=== PATIENT | female | born 1980 | race Caucasian/White ===

== ENCOUNTER 2016-10-31 19:26 | Emergency (ER) | payer BC, MEDICAID ==
[~2016-10-31] VITALS: Ht 170.2 cm; Wt 86.2 kg
[~2016-10-31 19:26] MED LIST: ACET1TAB43 PO; IBP600T1 PO; ONDAN4ODT PO; OXYC-12 PO; PREN1TAB39 PO; SULF1TAB38 PO
[2016-10-31] MEDS ORDERED: NPD5OP OS (20:03)
--- NOTE | 2016-10-31 20:03 | ED EENT ---
History of Present Illness General Chief Complaint: Eye Problems Stated Complaint: L EYE REDNESS/DISCOMFORT Nursing Triage Note: PT TO ED 6 W/ C/O LT EYE PAIN ONSET 1200 TODAY, DENIES INJURY History of Present Illness Time seen by provider: 19:50 Initial Comments Evaluation for left eye swelling, redness and mucoid discharge. Patient denies any injury to her left eye states that the discharge began today. She's been using warm moist compresses on it. She does not wear contacts and uses no eye makeup regularly. No household contacts have similar symptoms. Timing/Duration: abrupt Severity: mild Location: eye (L) Prearrival Treatment: no prearrival treatment Associated Symptoms: denies symptoms, No facial pain/swelling, other (no visual changes.) Allergies and Home Medications Allergies Uncoded Allergies: PCN (Allergy, Mild, 11/18/08) Home Medications Ibuprofen 600 Mg Tab, 600 MG PO Q8H, (Reported) As needed for cramps Carrington/Polymyx B Sulf/Dexameth 5 Ml Drops.susp, 2 DRP OS Q4H for 7 Days, #1 Ref 0 2 drops to left eye every 4 hours for 7 hours Prescribed by: BEBA HAILE on 10/31/162002 Oxycodone Hcl/Acetaminophen 1 Each Tablet, 1 EACH PO Q4H PRN, (Reported) As needed for pain Vits W-Ca,Fe,Fa(<1MG) 1 Each Tablet, 1 EACH PO DAILY, (Reported) Daily for one month or as long as Review of Systems Constitutional: no symptoms reported, see HPI Eyes: See HPI, Denies Blurred Vision, Drainage, Denies Decreased Acuity, Denies Foreign Body Sensation, Inflammation, Denies Pain, Denies Photophobia, Denies Previous Injury Nose: no symptoms reported, see HPI All Other Systems Reviewed Negative Unless Noted: Yes Past Vcziojs-Wbtynz-Noounx Hx Patient Social History Alcohol Use: Denies Use Recreational Drug Use: No Smoking Status: Never a Smoker Recent Foreign Travel: No Contact w/Someone Who Travel: No Recent Infectious Disease Expo: No Recent Hopitalizations: Yes (CHILDBIRTH) Respiratory Hx Respiratory Disorders: No Cardiovascular Hx Cardiac Disorders: No Neurological Hx Neurological Disorders: No Reproductive System Hx Reproductive Disorders: No Genitourinary Hx Genitourinary Disorders: No Gastrointestinal Hx Gastrointestinal Disorders: No Musculoskeletal Hx Musculoskeletal Disorders: No Endocrine Hx Endocrine Disorders: No HEENT HX ENT Disorders: No Psychosocial Hx Psychiatric Problems: No Blood Transfusions Hx Blood Disorders: No Reviewed Nursing Assessment Reviewed/Agree w Nursing PMH: Yes Visual Acuity : Eye Location: Left Vision Acuity Degree: 20/20 Physical Exam Vital Signs Vital Sign - Last 12Hours 10/31/16 19:29 Temp 98.3 Pulse 80 Resp 20 B/P (MAP) 130/87 Pulse Ox 99 O2 Delivery Room Air General Appearance: WD/WN, no apparent distress Eyes: left eye conjunctival inflammation, bilateral eye EOMI, bilateral eye PERRL, bilateral eye normal inspection Ears: bilateral ear TM normal, bilateral ear auricle normal, bilateral ear canal normal Nose: normal inspection, No discharge, No sinus tenderness Mouth/Throat: normal mouth inspection, pharynx normal Neck: non-tender, full range of motion, supple, No lymphadenopathy (R), No lymphadenopathy (L) Cardiovascular: normal peripheral pulses, regular rate, rhythm, no murmur Respiratory: chest non-tender, lungs clear Neurologic/Psychiatric: no motor/sensory deficits, alert, normal mood/affect, oriented x 3 Skin: normal color, warm/dry Progress/Results/Core Measures Results/Orders Vital Signs/I&O Vital Sign - Last 12Hours 10/31/16 19:29 Temp 98.3 Pulse 80 Resp 20 B/P (MAP) 130/87 Pulse Ox 99 O2 Delivery Room Air Blood Pressure Mean: 101 Departure Impression Impression: Primary Impression: Conjunctivitis Qualified Codes: H10.32 - Unspecified acute conjunctivitis, left eye Disposition: 01 HOME, SELF-CARE Condition: Improved Departure-Patient Inst. Decision time for Depature: 20:00 Referrals: BLAINE FUENTES MD (PCP/Family) Primary Care Physician Patient Instructions: Conjunctivitis (Pinkeye) (DC) Add. Discharge Instructions: Warm moist compresses to the left eye. Use antibiotics as prescribed. Change pillowcase daily. Wash hands frequently. Return to emergency department if changes in vision, increased pain or swelling in the eyes, or new complaints. All discharge instructions reviewed with patient and/or family. Voiced understanding. Scripts Carrington/Polymyx B Sulf/Dexameth (Lrpppk-Uzzze-Lyrxtkqo Eye Drop) 5 Ml Drops.susp 2 DRP OS Q4H for 7 Days, #1 DROPS 0 Refills 2 drops to left eye every 4 hours for 7 hours Prov: BEBA HAILE 10/31/16 BEBA HAILE Oct 31, 2016 20:03
[2016-10-31 20:15] VITALS: BP 0/0
--- OUTSIDE RECORDS SUMMARY | 2016-10-31 21:38 | XMS REPORT | Continuity of Care Document ---
Author Author [facility] Address Unknown Phone Unavailable Allergies Active Description Code Type Severity Reaction Onset Reported/Identified Relationship to Patient Clinical Status Yes Penicillins Drug Allergy 11/09/2009 Yes Penicillins Drug Allergy N/A N/A 11/09/2009 Medications Problems Date Dx Coded Attending Type Code Diagnosis Diagnosed By 12/25/2007 034.0 STREP THROAT 12/25/2007 AAYUSH CELESTIN DO 034.0 STREP THROAT 12/25/2007 ALTHEA MCKEON ALBARO A 034.0 STREP THROAT 12/25/2007 EDWIGE BRYANT APRN E 034.0 STREP THROAT 12/25/2007 AAYUSH CELESTIN DO 034.0 STREP THROAT 01/17/2008 296.90 UNSPECIFIED EPISODIC MOOD DISORDER 01/17/2008 300.00 AN ANXIETY UNSPEC 01/17/2008 LALA CELESTIN DOA K 296.90 UNSPECIFIED EPISODIC MOOD DISORDER 01/17/2008 LALA CELESTIN DOA K 300.00 AN ANXIETY UNSPEC 01/17/2008 [place] OH APRNIDI A 296.90 UNSPECIFIED EPISODIC MOOD DISORDER 01/17/2008 ALTHEA MCKEON ALBARO A 300.00 AN ANXIETY UNSPEC 01/17/2008 EDWIGE BRYANT APRN E 296.90 UNSPECIFIED EPISODIC MOOD DISORDER 01/17/2008 EDWIGE BRYANT APRN E 300.00 AN ANXIETY UNSPEC 01/17/2008 LALA CELESTIN DOA K 296.90 UNSPECIFIED EPISODIC MOOD DISORDER 01/17/2008 LALA CELESTIN DOA K 300.00 AN ANXIETY UNSPEC 11/09/2009 682.9 CELLULITIS AND ABSCESS OF UNSPECIFIED SITES 11/09/2009 AAYUSH CELESTIN DO 682.9 CELLULITIS AND ABSCESS OF UNSPECIFIED SITES 11/09/2009 ALTHEA MCKEON ALBARO A 682.9 CELLULITIS AND ABSCESS OF UNSPECIFIED SITES 11/09/2009 EDWIGE BRYANT APRN E 682.9 CELLULITIS AND ABSCESS OF UNSPECIFIED SITES 11/09/2009 AAYUSH CELESTIN DO 682.9 CELLULITIS AND ABSCESS OF UNSPECIFIED SITES 03/22/2010 465.9 ACUTE UPPER RESPIRATORY INFECTIONS OF UNSPECIFIED SITE 03/22/2010 AAYUSH CELESTIN DO 465.9 ACUTE UPPER RESPIRATORY INFECTIONS OF UNSPECIFIED SITE 03/22/2010 ALBARO OH APRN A 465.9 ACUTE UPPER RESPIRATORY INFECTIONS OF UNSPECIFIED SITE 03/22/2010 EDWIGE BRYANT APRN 465.9 ACUTE UPPER RESPIRATORY INFECTIONS OF UNSPECIFIED SITE 03/22/2010 AAYUSH CELESTIN DO 465.9 ACUTE UPPER RESPIRATORY INFECTIONS OF UNSPECIFIED SITE 04/29/2010 079.99 VIRAL SYNDROME 04/29/2010 AAYUSH CELESTIN DO 079.99 VIRAL SYNDROME 04/29/2010 ALBARO OH APRN A 079.99 VIRAL SYNDROME 04/29/2010 EDWIGE BRYANT APRN 079.99 VIRAL SYNDROME 04/29/2010 AAYUSH CELESTIN DO 079.99 VIRAL SYNDROME 05/16/2010 723.1 CERVICALGIA 05/16/2010 AAYUSH CELESTIN DO 723.1 CERVICALGIA 05/16/2010 ALBARO OH APRN A 723.1 CERVICALGIA 05/16/2010 EDWIGE BRYANT APRN 723.1 CERVICALGIA 05/16/2010 AAYUSH CELESTIN DO 723.1 CERVICALGIA 05/19/2010 V72.31 ROUTINE GYNECOLOGICAL EXAMINATION 05/19/2010 AAYUSH CELESTIN DO V72.31 ROUTINE GYNECOLOGICAL EXAMINATION 05/19/2010 ALBARO OH APRN A V72.31 ROUTINE GYNECOLOGICAL EXAMINATION 05/19/2010 EDWIGE BRYANT APRN V72.31 ROUTINE GYNECOLOGICAL EXAMINATION 05/19/2010 AAYUSH CELESTIN DO V72.31 ROUTINE GYNECOLOGICAL EXAMINATION 06/15/2010 795.00 ABNORMAL GLANDULAR PAPANICOLAOU SMEAR OF CERVIX 06/15/2010 AAYUSH CELESTIN DO 795.00 ABNORMAL GLANDULAR PAPANICOLAOU SMEAR OF CERVIX 06/15/2010 ALBARO OH APRN A 795.00 ABNORMAL GLANDULAR PAPANICOLAOU SMEAR OF CERVIX 06/15/2010 EDWIGE BRYANT APRN 795.00 ABNORMAL GLANDULAR PAPANICOLAOU SMEAR OF CERVIX 06/15/2010 AAYUSH CELESTIN DO 795.00 ABNORMAL GLANDULAR PAPANICOLAOU SMEAR OF CERVIX 10/17/2010 V72.42 EXAMINATION OR TEST POSITIVE RESULT 10/17/2010 LALA CELESTIN DOA K V72.42 EXAMINATION OR TEST POSITIVE RESULT 10/17/2010 ALBARO OH APRN V72.42 EXAMINATION OR TEST POSITIVE RESULT 10/17/2010 EDWIGE BRYANT APRN V72.42 EXAMINATION OR TEST POSITIVE RESULT 10/17/2010 LALA CELESTIN DOA K V72.42 EXAMINATION OR TEST POSITIVE RESULT 10/28/2013 AAYUSH CELESTIN DO K 078.12 PLANTAR WART 10/28/2013 AL[place] OH APRN A 078.12 PLANTAR WART 10/28/2013 EDWIGE BRYANT APRN 078.12 PLANTAR WART 10/28/2013 AAYUSH CELESTIN DO K 078.12 PLANTAR WART 11/11/2013 ALBARO OH APRN V25.42 CONTRACEPTION SURVEILLANCE (IUD) 11/11/2013 ALBARO OH APRN V73.81 HPV SCREENING 11/11/2013 ALBARO OH APRN A V76.10 BREAST CANCER SCREENING 11/11/2013 ALBARO OH APRN A V76.2 CERVICAL CANCER SCREENING (PAP SMEAR) 11/11/2013 EDWIGE BRYANT APRN V25.42 CONTRACEPTION SURVEILLANCE (IUD) 11/11/2013 EDWIGE BRYANT APRN V73.81 HPV SCREENING 11/11/2013 EDWIGE BRYANT APRN V76.10 BREAST CANCER SCREENING 11/11/2013 EDWIGE BRYANT APRN V76.2 CERVICAL CANCER SCREENING (PAP SMEAR) 11/11/2013 AAYUSH CELESTIN DO V25.42 CONTRACEPTION SURVEILLANCE (IUD) 11/11/2013 AAYUSH CELESTIN DO V73.81 HPV SCREENING 11/11/2013 LALA CELESTIN DOA K V76.10 BREAST CANCER SCREENING 11/11/2013 LALA CELESTIN DOA K V76.2 CERVICAL CANCER SCREENING (PAP SMEAR) 12/08/2013 EDWIGE BRYANT APRN 701.9 UNSPECIFIED HYPERTROPHIC AND ATROPHIC CONDITIONS OF SKIN 12/08/2013 AAYUSH CELESTIN DO 701.9 UNSPECIFIED HYPERTROPHIC AND ATROPHIC CONDITIONS OF SKIN 03/30/2014 AAYUSH CELESTIN DO 692.9 CONTACT DERMATITIS AND OTHER ECZEMA UNSPECIFIED CAUSE Procedures Code Description Performed By Performed On Podiatry Niurka Bales 10/28/2013 98538 PAP SMEAR 2013 Q0091 PAP SMEAR OBTAIN SMEAR 11/11/2013 91110 SKIN TAG REM 1-15 12/08/2013 Results Encounters ACCT No. Visit Date/Time Discharge Status Pt. Type Provider Facility Loc./Unit Complaint [id number] 03/30/2014 08:24:00 03/30/2014 23: 59:59 CLS Outpatient AAYUSH CELESTIN DO [id number] 12/08/2013 10:22:00 12/08/2013 23: 59:59 CLS Outpatient EDWIGE BRYANT APRN [id number] 11/11/2013 09:13:00 11/11/2013 23: 59:59 CLS Outpatient ALBARO OH APRN [id number] 10/28/2013 13:46:00 10/28/2013 23: 59:59 CLS Outpatient AAYUSH CELESTIN DO [id number] 07/28/2011 14:56:00 Document Registration
== END 2016-10-31 20:15 | disposition home or self-care (01) ==
LOC: EDUNIT# 19:26 → ER 19:27
DX: H10.9 Unspecified conjunctivitis (principal)
CPT/HCPCS: 99282

== ENCOUNTER → 2017-03-31 | Outpatient (CLI) | payer BC, MEDICAID ==
[~2017-03-31] MED LIST changes: +NPD5OP OS
--- NOTE | 2017-03-31 23:12 | Diagnostic Imaging Report ---
PATIENT HISTORY: Laceration of dorsum of left foot. TECHNIQUE: Two views of the left foot. COMPARISON: None. FINDINGS: No acute fracture or dislocation is seen in the left foot. Alignment of the bony structures is normal. The joint spaces are preserved. There is mild soft tissue edema and soft tissue laceration at the dorsum of the left forefoot. No radiopaque foreign bodies are seen. IMPRESSION: Soft tissue edema and laceration at the dorsum of the left forefoot with no radiopaque foreign bodies or acute osseous abnormality seen. Dictated by: Dictated on workstation # [id number]
== END ==
LOC: RAD 17:33
PROVIDERS: ATTEND Family Medicine
DX: S91.312A Laceration without foreign body, left foot, initial encounter (principal)
CPT/HCPCS: 73620